=== PATIENT | female | born 1980 | race Caucasian/White ===

== ENCOUNTER 2020-10-27 10:30 | Outpatient (RCR) | payer BC ==
[2020-10-13 10:53] VITALS: BP 115/79; PULSE 67; TEMP 97.4
[2020-10-20 11:00] VITALS: BP 106/70; PULSE 60; TEMP 98.6
[~2020-10-27] VITALS: Ht 165.1 cm; Wt 70.7 kg
[2020-10-27 10:30] VITALS: BP 103/67; PULSE 67; TEMP 98.4
[~2020-10-27 10:30] MED LIST: ZYRTEC 10MG10 MG PO
--- NOTE | 2020-10-27 11:38 | NUR ---
Ordered iron infusions completed. Pt tolereated all without issue. IV DC'd with catheter intact. She ambulates out from dept with steady gait.
== END 2020-10-27 11:39 | disposition home or self-care (01) ==
LOC: EUO 10:30
DX: Z79.899 Other long term (current) drug therapy (principal)
CPT/HCPCS: J1756

== ENCOUNTER → 2024-01-09 | Outpatient (CLI) | payer BC | LOC: MC.RAD 06:59 | DX: Z12.31 Encounter for screening mammogram for malignant neoplasm of breast (principal); N63.21 Unspecified lump in the left breast, upper outer quadrant ==

== ENCOUNTER → 2024-01-30 | Outpatient (CLI) | payer BC | LOC: MC.RAD 10:45 | DX: N63.21 Unspecified lump in the left breast, upper outer quadrant (principal); N60.02 Solitary cyst of left breast | CPT/HCPCS: A4648 ==